=== PATIENT | female | born 1985 | race Caucasian/White ===

== ENCOUNTER → 2023-03-28 | Outpatient (REF) | payer BC, OTHER ==
[~2023-03-28] MED LIST: ARMO1TAB; magnesium PO
== END ==
LOC: M SFHCWAGY 18:14
PROVIDERS: ATTEND Nurse Practitioner Family
DX: Z12.4 Encounter for screening for malignant neoplasm of cervix (principal)
CPT/HCPCS: 87624; G0123

== ENCOUNTER → 2023-05-14 | Outpatient (CLI) | payer BC, OTHER ==
[2023-05-14 17:13] LABS: FREE T3 15.7 PG/ML (2.3-4.2); THYROID STIMULATING HORMONE 0.008 uIU/ML (0.55-4.78)
[2023-05-14 17:14] LABS: FREE T4 2.97 NG/DL (0.89-1.76)
== END ==
LOC: M WUC 13:28
PROVIDERS: ATTEND Internal Medicine
DX: E06.3 Autoimmune thyroiditis (principal); E04.9 Nontoxic goiter, unspecified

== ENCOUNTER → 2023-05-30 | Outpatient (CLI) | payer BC, OTHER ==
[2023-05-30 13:29] LABS: FREE T4 2.6 NG/DL (0.89-1.76)
[2023-05-30 13:30] LABS: THYROID STIMULATING HORMONE 0.008 uIU/ML (0.55-4.78)
[2023-05-30 13:31] LABS: FREE T3 13.4 PG/ML (2.3-4.2)
== END ==
LOC: M WUC 10:04
PROVIDERS: ATTEND Internal Medicine
DX: R94.6 Abnormal results of thyroid function studies (principal)

== ENCOUNTER → 2023-06-01 | Outpatient (CLI) | payer BC, OTHER | LOC: M RAD 14:02 | PROVIDERS: ATTEND Internal Medicine | DX: E06.3 Autoimmune thyroiditis (principal) ==

== ENCOUNTER → 2023-08-09 | Outpatient (CLI) | payer BC, OTHER ==
[2023-08-09 19:07] LABS: FREE T4 1.64 NG/DL (0.89-1.76); THYROID STIMULATING HORMONE 0.008 uIU/ML (0.55-4.78)
[2023-08-09 19:10] LABS: FREE T3 6.1 PG/ML (2.3-4.2)
== END ==
LOC: M WUC 12:26
PROVIDERS: ATTEND Internal Medicine
DX: E06.3 Autoimmune thyroiditis (principal); R94.6 Abnormal results of thyroid function studies

== ENCOUNTER → 2024-02-06 | Outpatient (CLI) | payer BC, OTHER ==
[2024-02-06 19:10] LABS: FREE T4 1.34 NG/DL (0.89-1.76); THYROID STIMULATING HORMONE 1.251 uIU/ML (0.55-4.78)
[2024-02-06 19:19] LABS: FREE T3 3.4 PG/ML (2.3-4.2)
== END ==
LOC: M WUC 12:51
PROVIDERS: ATTEND Internal Medicine
DX: E05.90 Thyrotoxicosis, unspecified without thyrotoxic crisis or storm (principal)

== ENCOUNTER → 2024-07-02 | Outpatient (REF) | payer OTHER, BC ==
[2024-07-02 19:20] LABS: FREE T4 1.34 NG/DL (0.89-1.76)
[2024-07-02 19:21] LABS: THYROID STIMULATING HORMONE 1.129 uIU/ML (0.55-4.78)
[2024-07-02 19:22] LABS: FREE T3 3.5 PG/ML (2.3-4.2)
== END ==
LOC: M LABWUC 16:41
PROVIDERS: ATTEND Internal Medicine
DX: E05.90 Thyrotoxicosis, unspecified without thyrotoxic crisis or storm (principal)